=== PATIENT | female | born 1995 | race Caucasian/White ===

== ENCOUNTER 2018-07-31 11:17 | Outpatient (REF) | payer MEDICAID, SELFPAY ==
--- NOTE | 2018-07-31 09:45 | PAPFT_PTH ---
PATIENT: TENA TRUJILLO [id number] AGE/SX: 22/F ROOM: RE07/31/[address]: Denisha Leyva : 1995 BED: DIS: 07/31/2018 SPEC #: [id number] RECD: 08/01/18 13:05 STATUS: DANIELLE RELidia #: [id number] CEDRICK: 07/31/18 09:[address]: Denisha Leyva DEPT: [facility] Cytology RECD BY: Deepti Fischer Tissues: 1 - CX/ENDOCX FOR PAP SMEARS Procedures: PAP THIN PREP/[facility] Screening Comments: [id number] (CHLAMYDIA/GC)
[2018-08-02 18:06] LABS: Chlamydia Result Negative; GC Result Negative; Specimen Description SEE COMMENTS
== END 2018-07-31 11:37 ==
LOC: NCHCN 11:17
PROVIDERS: PCP Registered Nurse; Visit Provider Registered Nurse
DX: Z00.00 Encounter for general adult medical examination without abnormal findings (principal); Z12.4 Encounter for screening for malignant neoplasm of cervix; Z11.3 Encounter for screening for infections with a predominantly sexual mode of transmission
CPT/HCPCS: 87491; 87591; 88142